=== PATIENT | female | born 1990 | race Caucasian/White ===

== ENCOUNTER 2019-05-14 05:47 | Inpatient (IN) | payer OTHER ==
[2019-05-12 16:26] LABS: ABS Lymphocytes 1.9 10^3/ul (1.0-4.8); ABS Monocytes 0.4 10^3/ul (0-0.8); ABS Neutrophils 3.7 10^3/ul (1.5-7.7); Eosinophil % 0.8 %; Hematocrit 35 % (35-47); Hemoglobin 12.1 g/dL (12.0-16.0); Lymphocyte % 31.9 %; Mean Corpuscular HGB Conc 35 g/dL (31-36); Mean Corpuscular Hemoglobin 31 pg (27-31); Mean Corpuscular Volume 89 fL (80-97); Mean Platelet Volume 7.2 fL (7.4-10.4); Platelet Count 242 10^3/uL (150-450); Red Blood Count 3.89 10^6 /uL (3.70-4.87); Red Cell Distribution Width 16 % (10-15); White Blood Count 6.1 10^3/uL (3.5-10.8)
[2019-05-14] MEDS ORDERED: ceFOXitin 2 GM IVPREMIX* 2 GM/50 ML BAG IVPB ONE (06:00)
[2019-05-14 06:59] LABS: Urine Benzodiazepine Screen None Detected (None Detect); Urine Opiates Screen None Detected (None Detect)
[2019-05-14] MEDS ORDERED: Sodium Citrate/Citric Acid* 15 ML UDC PO ONE (07:39)
[2019-05-14] MEDS ORDERED: Sodium Citrate/Citric Acid* 15 ML UDC ONE (07:41)
[2019-05-14] MEDS ORDERED: Ondansetron INJ* 2 MG/ML VIAL ONE (07:43)
[2019-05-14] MEDS ORDERED: Morphine PF AMP (0.5MG/ML)* 5 MG/10 ML AMP ONE (07:43)
[2019-05-14] MEDS ORDERED: Ketorolac INJ* 30 MG/ML 1 ML VIAL ONE (07:43)
[2019-05-14] MEDS ORDERED: OXYTOCIN* 10 UNITS/ML 1 ML VIAL ONE (07:43)
[2019-05-14] MEDS ORDERED: Lactated Ringers 1000 ML Bag* 1,000 ML IV SCH ×2 (08:00→10:00)
[2019-05-14] MEDS ORDERED: EPHEDrine (Pressors)* 50 MG/ML VIAL ONE (08:15)
[2019-05-14] MEDS ORDERED: Phenylephrine 40 MCG/ML SYRINGE ONE (08:15)
[2019-05-14] MEDS ORDERED: Glycopyrrolate IV* 0.2 MG/ML 1 ML VIAL ONE (08:15)
[2019-05-14] MEDS ORDERED: oxyCODONE TAB* 5 MG TAB PO PRN ×2 (08:39→23:59)
[2019-05-14] MEDS ORDERED: DiMENhydriNATE IV* 50 MG/ML VIAL IV PUSH PRN (08:39)
[2019-05-14] MEDS ORDERED: Naloxone* 0.4 MG/ML 1 ML VIAL IV PRN ×2 (08:39→08:42)
[2019-05-14] MEDS ORDERED: Acetaminophen IV 1GM/100ML * 1,000 MG/100 ML VIAL IVPB ONE (08:39)
[2019-05-14] MEDS ORDERED: HYDROmorphone INJ1* 1 MG/ML SYRINGE IV PRN (08:39)
[2019-05-14] MEDS ORDERED: Ondansetron INJ* 2 MG/ML VIAL IV PRN (08:42)
[2019-05-14] MEDS ORDERED: Nalbuphine* 10 MG/ML 1 ML VIAL IV PRN (08:42)
[2019-05-14] MEDS ORDERED: oxyCODONE/Acetamin 5/325 MG* TAB PO PRN (08:42)
[2019-05-14] MEDS ORDERED: Glycerin ADULT SUPP PR PRN (09:06)
[2019-05-14] MEDS ORDERED: Witch Hazel PAD* JAR TOPICAL PRN (09:06)
[2019-05-14] MEDS ORDERED: Dibucaine 1% 28.35 GM TUBE PR PRN (09:06)
[2019-05-14] MEDS ORDERED: Oxytocin in LR* 20 UNITS/1,000 ML BAG IVPB SCH (10:00)
--- NOTE | 2019-05-14 12:32 | OP ---
OPERATIVE REPORT: DATE OF OPERATION: 05/14/19 DATE OF : 89 SURGEON: Dr. Bejarano. CNC FIELD SERVICE ENGINEER: Makayla Bean CNM. ANESTHESIA: Spinal. PRE-OP DIAGNOSIS: Previous section. POST-OP DIAGNOSIS: Previous section. PROCEDURE: Low transverse section. ESTIMATED BLOOD LOSS: 600 cc. COMPLICATIONS: None. FINDINGS: This is a 28-year-old with a previous section, who is desiring an elective repeat . At the time of , she had a viable male. Apgars 9 and 9, weight was 9 pounds 9 ounces. No rmal appearing uterus, fallopian tubes, and ovaries. DESCRIPTION OF PROCEDURE: The patient identified, procedure identified as low transverse se ction. The patient was taken to the operating room, prepped and draped in the usual fashion. In lef t lateral recumbent position under spinal anesthesia, a Pfannenstiel incision was made through the op en incision, carried down through fat, fascia, and peritoneum. A transverse incision was made in the lower uterine segment and extended laterally using blunt dissection. The above infant was delivered through the incision with ease. The cord was doubly clamped and cut, and the was handed to [facility] academic vice president. Cord blood was obtained. Placenta delivered spontaneously. Good hemostasi s was verified. The uterus was wiped out with a wet lap sponge. The uterine incision was then close d using 0 Polysorb in a running fashion. A second layer was used to imbricate the first layer. Good hemostasis was verified. The gutters were wiped out with a wet lap sponge. The peritoneum was then closed using 3-0 Polysorb in a running fashion. Good hemostasis achieved in the subrectus layers an d the fascia was closed using 0 Polysorb in a running fashion. Hemostasis was achieved in the subcu. The space was closed using 3-0 Vicryl simple sutures and the skin was closed with 4-0 Monocryl in a subcuticular fashion. Mastisol and Steri-Strips were applied. All sponge and instrument count s were correct and the patient returned to the recovery room in stable condition. [id number]/[facility] #: [id number]
[2019-05-14] MEDS: Ketorolac INJ* 30 MG/ML 1 ML VIAL IV SCH ×2 (16:05→22:06)
[2019-05-14] MEDS: Docusate CAP* 100 MG PO SCH ×2 (16:05→20:35)
[2019-05-14] MEDS: Simethicone TAB* 80 MG TAB.CHEW PO SCH ×3 (16:06→20:35)
[2019-05-14] MEDS ORDERED: Zolpidem TAB* 5 MG PO PRN (23:59)
[2019-05-15] MEDS: Ibuprofen TAB* 600 MG PO PRN ×4 (05:21→23:42)
[2019-05-15 05:52] LABS: ABS Basophils 0.1 10^3/ul (0-0.2); ABS Eosinophils 0.1 10^3/ul (0-0.6); ABS Lymphocytes 1.8 10^3/ul (1.0-4.8); ABS Monocytes 0.6 10^3/ul (0-0.8); ABS Neutrophils 4.2 10^3/ul (1.5-7.7); Hematocrit 31 % (35-47); Hemoglobin 10.6 g/dL (12.0-16.0); Lymphocyte % 26.8 %; Mean Corpuscular HGB Conc 34 g/dL (31-36); Mean Corpuscular Hemoglobin 31 pg (27-31); Mean Corpuscular Volume 90 fL (80-97); Platelet Count 196 10^3/uL (150-450); Red Blood Count 3.45 10^6 /uL (3.70-4.87); Red Cell Distribution Width 16 % (10-15); White Blood Count 6.7 10^3/uL (3.5-10.8)
[2019-05-15] MEDS: Ketorolac INJ* 30 MG/ML 1 ML VIAL IV SCH (07:01)
[2019-05-15] MEDS: Simethicone TAB* 80 MG TAB.CHEW PO SCH ×4 (08:07→21:13)
[2019-05-15] MEDS: Docusate CAP* 100 MG PO SCH ×3 (08:07→21:13)
[2019-05-15] MEDS: Acetaminophen TAB* 325 MG PO PRN ×4 (08:53→22:38)
[2019-05-15] MEDS ORDERED: Ferrous Gluconate TAB* 324 MG TAB PO SCH (09:00)
[2019-05-15] MEDS: oxyCODONE TAB* 5 MG TAB PO PRN (21:12)
[2019-05-16] MEDS: Acetaminophen TAB* 325 MG PO PRN (05:44)
[2019-05-16] MEDS: Ibuprofen TAB* 600 MG PO PRN (05:45)
[2019-05-16] MEDS: oxyCODONE TAB* 5 MG TAB PO PRN (05:45)
[2019-05-16 07:56] VITALS: BP 135/75
[2019-05-16] MEDS: Docusate CAP* 100 MG PO SCH (09:31)
[2019-05-16] MEDS: Simethicone TAB* 80 MG TAB.CHEW PO SCH (09:31)
== END 2019-05-16 11:21 | disposition home or self-care (01) | DRG 540 ==
LOC: MCHOB 05:47
PROVIDERS: ADMIT Obstetrics & Gynecology; ATTEND Obstetrics & Gynecology
PROC: 4A1HXCZ Monitoring of Products of Conception, Cardiac Rate, External Approach (ICD-10-PCS; 2019-05-14)
PROC: 10D00Z1 Extraction of Products of Conception, Low, Open Approach (ICD-10-PCS; principal; 2019-05-14 07:45)
DX: O34.211 Maternal care for low transverse scar from previous cesarean delivery (principal); O98.52 Other viral diseases complicating childbirth; A60.04 Herpesviral vulvovaginitis; Z3A.39 39 weeks gestation of pregnancy; Z37.0 Single live birth; Z79.899 Other long term (current) drug therapy
CPT/HCPCS: 36415; 80307; 85025; 86850; 86900; 86901; A9270-GY; G0480; J0694; J1885; J2405; J2590